=== PATIENT | male | born 1980 | race Caucasian/White ===

== ENCOUNTER 2017-10-16 00:38 | Emergency (ER) | payer OTHER ==
[~2017-10-16] VITALS: Ht 180.3 cm; Wt 79.4 kg
[~2017-10-16 00:38] MED LIST: ANUSOL-HC25 MG RECTAL; COLACE1 EAC1 RC; HYDROCODONE-AP1 EAC6 PO; HYDROCORTISONE30 G9 RECTAL; IBUPROFEN 800800 M1 PO; NOHOMEMEDICATIONS
[2017-10-16 00:58] LABS: URINE BILIRUBIN NEGATIVE (Negative); URINE BLOOD TRACE (Negative); URINE CLARITY CLEAR; URINE COLOR YELLOW; URINE GLUCOSE-RANDOM NEGATIVE (Negative); URINE KETONES NEGATIVE (Negative); URINE NITRITE-REFLEX NEGATIVE (Negative); URINE PROTEIN TRACE (Negative); URINE UROBILINOGEN 0.2 E.U./dl (0.2-1.0)
[2017-10-16 01:05] LABS: URINE LEUKOCYTES-REFLEX 3+ (Negative)
[2017-10-16] MEDS ORDERED: BACTRIM DS TAB1 EACH PO (01:11)
[2017-10-16 01:35] VITALS: BP 140/90
[2017-10-16 01:45] LABS: CASTS None Seen /LPF (None Seen); SQUAMOUS NONE SEEN /LPF (0-3); URINE WBC-REFLEX >25 Many /HPF (0-5)
[2017-10-16 01:46] LABS: CRYSTALS None Seen /LPF (None Seen); URINE RBC 0-2 Rare /HPF (0-2)
== END 2017-10-16 01:35 | disposition home or self-care (01) ==
LOC: M.ERS 00:38
PROVIDERS: Emergency Medicine
DX: N39.0 Urinary tract infection, site not specified (principal); Z20.2 Contact with and (suspected) exposure to infections with a predominantly sexual mode of transmission; Z86.14 Personal history of Methicillin resistant Staphylococcus aureus infection